=== PATIENT | male | born 2000 | race American Indian/Alaskan Native ===

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

== ENCOUNTER 2018-04-10 14:13 | Emergency (ER) | payer MEDICAID, OTHER ==
[2018-04-10 14:22] VITALS: BMI 25.7
[2018-04-10 14:25] VITALS: TEMP 98.8
[2018-04-10] MEDS ORDERED: Sodium Chloride 0.9% 1,000 ML IV STA (14:44)
[2018-04-10] MEDS ORDERED: Albuterol-Ipratrop 3 mg / 0.5 (3 ml) UD IH STA (14:46)
--- NOTE | 2018-04-10 15:16 | ED PDOC ---
Arrival/HPI - General Chief Complaint: Abdominal Pain Time Seen by Provider: 04/10/18 14:28 Historian: Patient - History of Present Illness Narrative History of Present Illness (Text): 04/10/18 15:15 18yo male with pmhx of Asthma who present with complaint of chest tightness, nonproductive cough, abdominal pain, nausea, nonbloody/billious vomiting, diarrhea x 1day. He smokes tobacco. He denies fever, chills, melena, hemtemesis, hematochezia, urinary symptoms, sick contact, travel, any other complaint. Past Medical History - Provider Review Nursing Documentation Reviewed: Yes - Infectious Disease Hx of Infectious Diseases: None - Tetanus Immunization Tetanus Immunization: Up to Date - Pulmonary Hx Asthma: Yes - Psychiatric Hx Depression: No Hx Emotional Abuse: No Hx Physical Abuse: No Hx Substance Use: No - Past Surgical History Past Surgical History: No Previous - Anesthesia Hx Anesthesia: No Hx Anesthesia Reactions: No Hx Malignant Hyperthermia: No - Suicidal Assessment Feels Threatened In Home Enviroment: No Family/Social History - Physician Review Nursing Documentation Reviewed: Yes Family/Social History: Unknown Family HX Smoking Status: Never Smoked Hx Alcohol Use: No Hx Substance Use: No Hx Substance Use Treatment: No Allergies/Home Meds Allergies/Adverse Reactions: Allergies No Known Allergies Allergy (Verified 06/28/17 18:42) Review of Systems - Physician Review All systems were reviewed & negative as marked: Yes - Review of Systems Constitutional: Normal Eyes: Normal ENT: Normal Respiratory: Cough Cardiovascular: Normal Gastrointestinal: Abdominal Pain, Diarrhea, Nausea, Vomiting. absent: Constipation Genitourinary Male: Normal Musculoskeletal: Normal Skin: Normal Neurological: Normal Endocrine: Normal Hemo/Lymphatic: Normal Psychiatric: Normal Physical Exam Vital Signs Reviewed: Yes Vital Signs Temp Pulse Resp BP Pulse Ox 04/10/18 14:22 98.8 F 107 H 18 126/77 99 Temperature: Afebrile Blood Pressure: Normal Pulse: Regular Respiratory Rate: Normal Appearance: Positive for: Well-Appearing, Non-Toxic, Comfortable Pain Distress: None Mental Status: Positive for: Alert and Oriented X 3 - Systems Exam Head: Present: Atraumatic, Normocephalic Pupils: Present: PERRL Extroacular Muscles: Present: EOMI Conjunctiva: Present: Normal Mouth: Present: Moist Mucous Membranes Neck: Present: Normal Range of Motion Respiratory/Chest: Present: Clear to Auscultation, Good Air Exchange, Wheezes (Mild expiratory wheeeze at the bases). No: Respiratory Distress, Accessory Muscle Use, Decreased Breath Sounds, Rales, Retracting, Rhonchi Cardiovascular: Present: Regular Rate and Rhythm, Normal S1, S2. No: Murmurs Abdomen: Present: Other (Soft). No: Tenderness, Distention, Peritoneal Signs, Rebound, Guarding, McBurney's Point Tender, Rovsing's Sign Present Back: Present: Normal Inspection Upper Extremity: Present: Normal Inspection. No: Cyanosis, Edema Lower Extremity: Present: Normal Inspection. No: Edema Neurological: Present: GCS=15, CN II-XII Intact, Speech Normal Skin: Present: Warm, Dry, Normal Color. No: Rashes Psychiatric: Present: Alert, Oriented x 3, Normal Insight, Normal Concentration Medical Decision Making ED Course and Treatment: 04/10/18 18:39 18yo male in ED for chest tightness, cough, abdominal pain, N/V/D x 1days. Labs CXR 1L NS, Zofran, pepcid, Duoneb x3, Prednisone On re evaluation pt states he feels much better. He was able to tolerate PO challenge in ED. Lab was wnl CXR NAD All result was DW the pt. He was consult on smoking cessation referred to his PMD Zofran, pepcid, Albuterol and Prdnisone rx given Advised to follow BRAT diet - Medication Orders Current Medication Orders: Sodium Chloride (Sodium Chloride 0.9%) 1,000 mls @ 1,000 mls/hr IV .Q1H STA Stop: 04/10/18 15:43 Discontinued Medications Albuterol/Ipratropium (Duoneb 3 Mg/0.5 Mg (3 Ml) Ud) 3 ml IH Q15M STA Stop: 04/10/18 14:47 Famotidine (Pepcid) 20 mg IVP STAT STA Stop: 04/10/18 14:45 Ondansetron HCl (Zofran Inj) 4 mg IVP STAT STA Stop: 04/10/18 14:45 Disposition/Present on Arrival - Present on Arrival Any Indicators Present on Arrival: No History of DVT/PE: No History of Uncontrolled Diabetes: No Urinary Catheter: No History of Decub. Ulcer: No History Surgical Site Infection Following: None - Disposition Have Diagnosis and Disposition been Completed?: Yes Diagnosis: Asthma attack, Abdominal pain, Vomiting and diarrhea Disposition: HOME/ ROUTINE Disposition Time: 16:30 Patient Plan: Discharge Condition: STABLE Discharge Instructions (ExitCare): Asthma, Adult (DC), Acute Abdomen (Belly Pain), Nausea and Vomiting, Adult (DC) Additional Instructions: Follow up with your Doctor Follow BRAT diet for 48hrs Return to ED for any new or worsening symptoms Prescriptions: RX: Albuterol HFA [Ventolin HFA 90 mcg/actuation (8 g)] 2 puff IH X2ANSED #1 puff Famotidine [Pepcid] 20 mg PO DAILY #10 tab Ondansetron ODT [Zofran ODT] 4 mg PO Q6 #6 odt predniSONE [Prednisone] 20 mg PO BID #6 tab Referrals: Hudson Gore MD [Primary Care Provider] - Follow up with primary Forms: [employer] (Mongolian)
[2018-04-10 15:37] LABS: BASO # 0.02 K/mm3 (0.0-2.0); BASO % 0.2 % (0.0-3.0); EOS # 0.3 (0.0-0.7); EOS % 2.2 % (1.5-5.0); GRAN # 9.47 (1.4-6.5); GRAN % 80.6 % (50.0-68.0); HEMOGLOBIN 14.7 g/dL (14.0-18.0); LYMPH # 1.1 (1.2-3.4); LYMPH % 8.9 % (22.0-35.0); MEAN CELL VOLUME 83.6 fl (80.0-105.0); MEAN CORPUSCULAR HEMOGLOBIN 29.1 pg (25.0-35.0); MEAN CORPUSCULAR HGB CONC 34.8 g/dl (31.0-37.0); MEAN PLATELET VOLUME 10.2 fl (7.0-11.0); MONO % 8.1 % (1.0-6.0); RBC 5.06 10^6/uL (3.5-6.1); RED CELL DISTRIBUTION WIDTH 13.3 % (11.5-14.5); WHITE BLOOD COUNT 11.8 10^3/ul (4.5-11.0)
[2018-04-10 15:44] LABS: INR 1.15; PARTIAL THROMBOPLASTIN TIME 31.7 Seconds (25.1-36.5); PROTHROMBIN TIME 13.1 SECONDS (9.4-12.5)
[2018-04-10 15:47] LABS: ALB/GLOB RATIO 1.3 (1.1-1.8); ALBUMIN 4.7 g/dL (3.0-4.8); ALT/SGPT 27 U/L (7-56); AST/SGOT 34 U/L (17-59); BLOOD UREA NITROGEN 10 mg/dL (7-21); CALCIUM 9.9 mg/dL (8.4-10.5); GFR NON-AFRICAN AMERICAN > 60; LIPASE 51 U/L (23-300)
--- NOTE | 2018-04-10 16:17 | RAD ---
HISTORY: cough/SOB COMPARISON: Chest x-ray performed 05/08/17 TECHNIQUE: Chest, one view. FINDINGS: LUNGS: No focal consolidation. Please note that chest x-ray has limited sensitivity for the detection of pulmonary masses. PLEURA: No significant pleural effusion identified. No definite pneumothorax . CARDIOVASCULAR: The cardiomediastinal silhouette appears within normal limits of size. No significant atherosclerotic calcification present. OSSEOUS STRUCTURES: No acute osseous abnormality identified. VISUALIZED UPPER ABDOMEN: Unremarkable. OTHER FINDINGS: None. IMPRESSION: No focal consolidation, significant pleural effusion, or definite pneumothorax identified.
[2018-04-10 17:26] VITALS: BP 142/73; PULSE 69; RESP 16; O2SAT 98
== END 2018-04-10 17:19 | disposition home or self-care (01) ==
LOC: ED 14:13
DX: J45.909 Unspecified asthma, uncomplicated (principal); R10.9 Unspecified abdominal pain; R11.2 Nausea with vomiting, unspecified; R19.7 Diarrhea, unspecified
CPT/HCPCS: 71045; 80053; 83690; 83735; 85025; 85610; 85730; 94640; 96374; 96375; 99283; J2405; J7030